=== PATIENT | female | born 1990 | race Caucasian/White ===

== ENCOUNTER 2022-07-12 13:17 | Emergency (ER) | payer SELFPAY ==
[2022-07-12 13:18] VITALS: BP 113/83; PULSE 108; RESP 18; TEMP 35.7; O2SAT 100; BMI 22.6
--- NOTE | 2022-07-12 14:05 | EKG12_ITS ---
Test Reason : Blood Pressure : / mmHG Vent. Rate : 090 BPM Atrial Rate : 090 BPM P-R Int : 150 ms QRS Dur : 076 ms QT Int : 366 ms P-R-T Axes : 068 045 001 degrees QTc Int : 447 ms Normal sinus rhythm Nonspecific T wave abnormality Abnormal ECG Confirmed by ROBERTA RANDALL, HALLE ([id number]), food editor HOLLIS ISRAEL ([id number]) on 07/14/2022 8:57:12 AM Referred By: Confirmed By:HALLE GRANADOS MD
--- NOTE | 2022-07-12 14:07 | EX.ED.DYSGE1 ---
HPI History of Present Illness Chief Complaint: Fatigue Detail of Chief Complaint: Weakness Informant: patient Narrative Narrative: Patient presents to the emergency department with complaint of generalized weakness that started 3 to 4 days ago. Patient states that she has exertional dyspnea and gets very weak with minimal activity where she has to sit down. She denies any recent illness. She denies any blood in her stool or black tarry stool. She denies urinary symptoms. She denies fever. She denies cough. She denies chest pain. Patient has not had symptoms like this before. She did have some abdominal discomfort yesterday when vomited x2 but that seems to have resolved. Patient's family was sick with a gastrointestinal bug a couple of weeks ago. Last menstrual period was 1 week ago and she has not missed any periods. Prior similar symptoms: No PFSH PFSH Medical History no medical history Home Medications NK 07/12/22 [History Last Taken Unknown] Allergy/AdvReac Type Severity Reaction Status Date / Time No Known Allergies Allergy Verified 07/12/22 13:19 Social History Smoking Status: Current every day smoker tobacco type: cigarettes ROS ROS ED Review of Systems ROS Unobtainable: other Constitutional Constitutional ED: Reports lethargy; Denies chills, fever(s), sweats or weight loss Eyes Eyes: Denies blurry vision, change in vision or diplopia ENT ENT ED: Denies rhinorrhea or sore throat Cardiovascular Cardiovascular: Denies chest pain, orthopnea or racing heartbeat Respiratory/Chest Respiratory/Chest: Reports dyspnea on exertion; Denies cough, dyspnea, orthopnea or sputum Gastrointestinal Gastrointestinal: Reports vomiting; Denies abdominal pain, diarrhea or nausea Genitourinary Genitourinary ED: Denies dysuria, hematuria or urinary frequency Musculoskeletal Musculoskeletal: Denies arthralgias, back pain, myalgias or neck pain Integumentary Denies abscess, Abrasions or rash Neurologic Neurologic: Reports weakness; Denies headache(s) Psychiatric Psychiatric: Denies anxiety, depression or suicidal thoughts Endocrine Endocrinology: Denies polydipsia, polyphagia or polyuria Hematologic/Lymphatic Hematologic/Lymphatic: Denies easy bleeding, easy bruising or lymphadenopathy Allergic/Immunologic Allergic/Immunologic ED: Denies mouth swelling, tongue swelling or urticaria EXAM Physical Exam Const Vital Signs: 07/12/22 13:18 Temperature 96.2 F L Temperature Source Temporal Pulse Rate 108 H Respiratory Rate 18 Blood Pressure 113/83 H Blood Pressure Mean 93 Pulse Ox 100 Oxygen Delivery Method Room Air Positive well nourished and well developed General Appearance ED: well developed and NAD HEENT Reports TM's clear and moist mucous membranes normocephalic and atraumatic; Negative for trauma or tenderness Tympanic Membrane ED: Yes TM's clear Eyes PERRL and EOMs intact bilaterally General Eye ED: Negative for pale conjunctiva or scleral icterus Neck no lymphadenopathy, supple and no JVD General: Negative for tenderness Chest Wall inspection of chest normal and palpation of chest normal Chest: Negative for tenderness Resp normal respiratory effort and clear to auscultation bilaterally Effort and Inspection: Negative for respiratory distress or pain with movement Auscultation: Negative for rhonchi, wheezes or diminished lung sounds Cardio regular rate, regular rhythm, S1 normal heart sound, S2 normal heart sound and no murmurs Peripheral Pulses: pulses 2+ throughout GI normal to inspection, nondistended, normoactive bowel sounds, soft to palpation, non-tender, non-distended and no masses Back/Spine no CVA tenderness and no thoracic nor lumbar tenderness Extremity normal to inspection General Extremety ED: Negative for edema General Extremity: Negative for edema Neuro oriented x3, CN's II-XII intact bilaterally, no sensory deficits noted and gait normal Sensorium / Orientation: awake, alert, oriented to person, oriented to place and oriented to time Motor Exam: strength 5/5 throughout and strength abnormal Psych mental status grossly normal Skin no rashes or lesions noted and no wounds MDM MDM MDM Narrative Medical decision making narrative: Patient presents with vague symptoms of generalized weakness. In the differential would be viral etiology versus anemia versus cardiac etiology versus metabolic etiology. Patient had an IV line established and was given normal saline. CBC with differential obtained showed a normal white count of 4.8 with a hemoglobin of 15 and a hematocrit of 45 with a platelet count of 186. Chemistries were normal. LFTs were normal. Troponin was less than 3. TSH normal at 1.45. hCG was negative. Urinalysis was normal. Chest x-ray showed no acute disease process. I did do a COVID and influenza screen and both were negative. EKG showed a sinus rhythm with a rate of [address] changes. At this time etiology of her symptoms unclear. Suspect possibility of a viral etiology as most likely. History & Record Review Discussion w/independent historian: Patient and Family Lab Data Labs: Laboratory Results - last 24 hr 07/12/22 07/12/22 07/12/22 14:10 14:10 14:10 WBC 4.8 RBC 5.04 Hgb 15.1 H Hct 44.9 MCV 89.1 MCH 30.0 MCHC 33.6 RDW Std Deviation 41.4 RDW Coeff of Izabella 12.7 Plt Count 186 MPV 9.5 Immature Gran % (Auto) 0.200 Neut % (Auto) 70.5 H Lymph % (Auto) 15.4 L Benson % (Auto) 13.1 H Eos % (Auto) 0.4 Baso % (Auto) 0.4 Absolute Neuts (auto) 3.4 Absolute Lymphs (auto) 0.74 L Nucleated RBC % 0 Sodium 136 Potassium 3.3 L Chloride 104 Carbon Dioxide 26.0 Anion Gap 6 BUN 9 Creatinine 0.68 Estim Creat Clear Calc 125.27 Est GFR (MDRD) Af Amer 130 Est GFR (MDRD) Non-Af 108 BUN/Creatinine Ratio 13.3 Glucose 109 H Calcium 8.4 L Total Bilirubin 0.60 AST 13 L ALT 15 Alkaline Phosphatase 58 Troponin I High Sens < 3 L Total Protein 6.4 Albumin 3.4 Globulin 3.0 Albumin/Globulin Ratio 1.1 TSH 1.45 Serum , Qual NEGATIVE Urine Color Urine Clarity Urine pH Ur Specific [place] Urine Protein Urine Glucose (UA) Urine Ketones Urine Occult Blood Urine Nitrite Urine Bilirubin Urine Urobilinogen Ur Leukocyte Esterase Urine RBC Urine WBC Ur Squamous Epith Cells Urine Bacteria Urine Mucus 07/12/22 14:10 WBC RBC Hgb Hct MCV MCH MCHC RDW Std Deviation RDW Coeff of Izabella Plt Count MPV Immature Gran % (Auto) Neut % (Auto) Lymph % (Auto) Benson % (Auto) Eos % (Auto) Baso % (Auto) Absolute Neuts (auto) Absolute Lymphs (auto) Nucleated RBC % Sodium Potassium Chloride Carbon Dioxide Anion Gap BUN Creatinine Estim Creat Clear Calc Est GFR (MDRD) Af Amer Est GFR (MDRD) Non-Af BUN/Creatinine Ratio Glucose Calcium Total Bilirubin AST ALT Alkaline Phosphatase Troponin I High Sens Total Protein Albumin Globulin Albumin/Globulin Ratio TSH Serum , Qual Urine Color Yellow Urine Clarity Sl. Cloudy Urine pH 6.0 Ur Specific [place] 1.020 Urine Protein 30 H Urine Glucose (UA) Normal Urine Ketones 5 H Urine Occult Blood 10 H Urine Nitrite Negative Urine Bilirubin 1 H Urine Urobilinogen 4 H Ur Leukocyte Esterase 25 H Urine RBC 0 SEEN Urine WBC 5-10 SEEN Ur Squamous Epith Cells 50-100 SEEN Urine Bacteria 0 SEEN Urine Mucus 2+ EKG Initial EKG: Attestation: I personally reviewed and interpreted this EKG as follows: Comments: Sinus rhythm with a rate of [address] changes. Prior EKG tracings: not available for review Discharge Plan Triage Chief Complaint: Fatigue ED Provider: Vanessa Conley Dx/Rx/DC Orders Clinical Impression: Weakness Instructions: ED Weakness (Uncertain Cause) Prescriptions: No Action NK Primary Care Provider: Care Physician,No Primary Referrals: Elisabeth Flynn MD [Med Staff - Radiologic Technician] - 3-5 Days Care Physician,No Primary [Primary Care Provider] - Disposition Disposition: Home, Self Care
--- NOTE | 2022-07-12 14:10 | NURSING ---
NO OLD EKGS
[2022-07-12] MEDS: 0.9% Normal Saline 1,000 ML 150 ML IV (14:21)
[2022-07-12 14:28] LABS: Bacteria 0 SEEN /hpf (None Seen); Red Blood Cells-Urine 0 SEEN /hpf (0-5)
--- NOTE | 2022-07-12 14:30 | RAD_ITS ---
EXAM: XR CHEST, 1 VIEW CLINICAL INDICATION: weakness TECHNIQUE: Frontal view of the chest. This report was created using [employer] report generation technology. COMPARISON: None. FINDINGS: LUNGS AND PLEURAL SPACES: The lungs are clear. No pneumothorax. No effusion. HEART: Unremarkable. Cardiac silhouette not enlarged. MEDIASTINUM: Central airways and mediastinal contour are unremarkable. BONES/JOINTS: Unremarkable. SOFT TISSUES: Unremarkable. RAD/Chest 1 View (Portable) IMPRESSION: Normal chest radiograph. Electronically Signed: Neto Beasley MD at 15:41 EST ,
[2022-07-12 14:33] LABS: Absolute Lymphocyte Count 0.74 X10^3/uL (0.83-4.51); Absolute Neutrophil Count 3.4 X10^3/uL (2.0-7.7); Basophil# 0.02 X10^3/uL; Basophil% 0.4 % (0-1); Eosinophil# 0.02 X10^3/uL; Eosinophils% 0.4 % (0-5); Hematocrit 44.9 % (37-47); Hemoglobin 15.1 g/dL (12.0-15.0); Lymphocyte # 0.74 X10^3/ul (0.83-4.51); Lymphocyte % 15.4 % (19-41); Mean Corp Hgb Conc 33.6 g/dL (32-36); Mean Corpuscular Volume 89.1 fL (81-99); Mean Platelet Vol. 9.5 fl (6.2-12.0); Monocyte# 0.63 X10^3/uL; Monocyte% 13.1 % (0-10); NRBC Flagged by Analyzer 0 % (0-5); Neutrophil % 70.5 % (47-70); Platelet Count 186 K/mm3 (150-450); RBC Distribution Width CV 12.7 % (11.6-14.6); RBC Distribution Width SD 41.4 fl (35.1-43.9); Red Blood Count 5.04 M/mm3 (4.2-5.4); White Blood Count 4.8 K/mm3 (4.4-11.0)
[2022-07-12 14:34] LABS: Color, Urine Yellow (Yellow); Glucose, Dipstick Normal (Normal); Ketone-Dipstick 5 mg/dl (Negative); Leukocyte Esterase-Dipstick 25 /ul (Negative); Nitrite-Dipstick Negative (Negative); Occult Blood-Urine 10 /ul (Negative); Protein-Dipstick 30 mg/dl (Negative); Urine Clarity Sl. Cloudy (Clear); Urine Urobilinogen 4 mg/dl (Normal)
[2022-07-12 14:41] LABS: Internal QC Validated? YES +Cl - CLEAR BKGD; Pregnancy, Serum, hCG Quali. NEGATIVE Negative
[2022-07-12 14:43] LABS: Urine Bilirubin Dipstick 1 mg/dL (Negative)
[2022-07-12 14:46] LABS: Mucous, Urine 2+ /hpf (<or=2+); Squamous Epithelial Cells - UA 50-100 SEEN /hpf (5-10); White Blood Cells 5-10 SEEN /hpf (0-5)
[2022-07-12 15:00] LABS: ALB/GLOB Ratio 1.1 RATIO (0.9-2.4); AST(SGOT) 13 U/L (15-37); Alanine Aminotransfer ALT/SGPT 15 U/L (13-56); Albumin, Serum 3.4 g/dL (3.2-5.0); Alkaline Phosphatase 58 U/L (45-117); Anion Gap 6 (5-15); BUN 9 mg/dL (7-18); BUN/Creat Ratio 13.3 RATIO (10-20); Calcium,Total 8.4 mg/dL (8.5-10.1); Chloride 104 mmol/L (98-107); Creatinine, Serum 0.68 mg/dL (0.55-1.02); EST Glomerular Filtration Rate 108 mL/min (>60); Est Glom Filt Rate - Afr Amer 130 mL/min (>60); Estimated Creatinine Clearance 125.27 ml/min; Glucose 109 mg/dL (74-106); Potassium 3.3 mmol/L (3.5-5.1); Protein, Total 6.4 g/dL (6.4-8.2); Sodium Level 136 mmol/L (136-145); Thyroid Stim Hormone (TSH) 1.45 uIU/mL (0.358-3.74); Troponin-I HS < 3 pg/mL (3.0-54.0)
[2022-07-12 15:23] VITALS: BP 107/74; PULSE 90; RESP 16; O2SAT 99
== END 2022-07-12 15:32 | disposition home or self-care (01) ==
PROVIDERS: Emergency Provider Emergency Medicine; Visit Provider Emergency Medicine
DX: R53.1 Weakness (principal); F17.210 Nicotine dependence, cigarettes, uncomplicated
CPT/HCPCS: 71045; 80053; 81001; 84443; 84484; 84703; 85025; 87428; 93005; 96360; 99282; J7030; A4216

== ENCOUNTER → 2022-11-07 | Outpatient (CLI) | payer OTHER, MEDICAID, SELFPAY ==
[2022-11-11 05:07] LABS: Chlamydia By Nucleic Acid AMP Negative (Negative); Gonococcus By Nucleic Acid AMP Negative (Negative)
[2022-11-12 00:06] LABS: HPV APTIMA, High Risk Positive (Negative); HPV Genotype 16, Aptima Negative (Negative); HPV Genotype 18,45 Aptima Negative (Negative)
== END | disposition home or self-care (01) ==
LOC: LABSPEC 16:48
PROVIDERS: Referring Provider Advanced Practice Midwife; Visit Provider Advanced Practice Midwife
DX: Z34.90 Encounter for supervision of normal pregnancy, unspecified, unspecified trimester (principal)
CPT/HCPCS: 87086; 87491; 87591; 87624; 88175; G0145

== ENCOUNTER → 2022-11-21 | Outpatient (CLI) | payer OTHER, MEDICAID, SELFPAY ==
[2022-11-21 13:25] LABS: NATERA MAILED SPECIMEN
== END | disposition home or self-care (01) ==
LOC: LAB 12:15
PROVIDERS: Referring Provider Advanced Practice Midwife; Visit Provider Advanced Practice Midwife
DX: Z34.81 Encounter for supervision of other normal pregnancy, first trimester (principal); Z31.430 Encounter of female for testing for genetic disease carrier status for procreative management
CPT/HCPCS: 36415

== ENCOUNTER → 2022-12-05 | Outpatient (CLI) | payer MEDICAID, SELFPAY ==
[2022-12-05 15:13] LABS: Absolute Lymphocyte Count 1.47 X10^3/uL (0.83-4.51); Absolute Neutrophil Count 7.6 X10^3/uL (2.0-7.7); Basophil# 0.02 X10^3/uL; Basophil% 0.2 % (0-1); Eosinophil# 0.09 X10^3/uL; Eosinophils% 0.9 % (0-5); Hematocrit 34.6 % (37-47); Hemoglobin 11.6 g/dL (12.0-15.0); Lymphocyte # 1.47 X10^3/ul (0.83-4.51); Lymphocyte % 14.8 % (19-41); Mean Corp Hgb Conc 33.5 g/dL (32-36); Mean Corpuscular Hgb 30.8 pg (27.0-32.0); Mean Corpuscular Volume 91.8 fL (81-99); Mean Platelet Vol. 9.9 fl (6.2-12.0); Monocyte# 0.69 X10^3/uL; NRBC Flagged by Analyzer 0 % (0-5); Neutrophil # 7.59 X10^3/uL (2.7-7.7); Neutrophil % 76.7 % (47-70); Platelet Count 237 K/mm3 (150-450); RBC Distribution Width CV 13.1 % (11.6-14.6); Red Blood Count 3.77 M/mm3 (4.2-5.4); White Blood Count 9.9 K/mm3 (4.4-11.0)
[2022-12-05 16:36] LABS: HIV - WCH Non-Reactive (Nonreactive); Hepatitis B Surface Antigen Non-Reactive (Nonreactive); Hepatitis C Antibody Non-Reactive (Nonreactive); Rubella IgG Reactive (Nonreactive); Syphilis Antibodies Non-reactive
== END | disposition home or self-care (01) ==
PROVIDERS: Referring Provider Advanced Practice Midwife; Visit Provider Advanced Practice Midwife
DX: Z34.90 Encounter for supervision of normal pregnancy, unspecified, unspecified trimester (principal)
CPT/HCPCS: 36415; 85025; 86703; 86762; 86780; 86803; 86850; 86900; 86901; 87340

== ENCOUNTER → 2023-02-14 | Outpatient (CLI) | payer MEDICAID, SELFPAY ==
--- NOTE | 2023-02-14 14:36 | US_ITS ---
EXAM: US SECOND OR THIRD TRIMESTER ADDITIONAL GESTATION, TRANSABDOMINAL CLINICAL INDICATION: anatomy US TECHNIQUE: Transabdominal obstetrical ultrasound with image documentation of the maternal pelvis and an additional second or third trimester . COMPARISON: No relevant prior studies available. FINDINGS: ADDITIONAL GESTATION: FETUS: There is an intrauterine gestation. HEART RATE: heart rate is 150. PRESENTATION: The fetus is in cephalic position. PLACENTA: Placenta is anterior. No placenta previa. No abruption. AMNIOTIC FLUID: Unremarkable. ANATOMY: Lateral ventricles, cisterna magna, cerebellum face, four-chamber heart, stomach, three-vessel cord insertion, kidneys, bladder, spine and extremities were all visualized. BIOMETRICS of the ADDITIONAL GESTATION: GESTATIONAL AGE: Gestational age 20 weeks 2 days. SHERIF: SHERIF 06/18/2023. EFW: Estimated weight 517 g, 52nd percentile. BPD: Biparietal diameter 5.5 cm age 22 weeks 6 days, 69th percentile. HC: Head circumference 20.2 cm age 22 weeks 2 days, 38th percentile. AC: Abdominal circumference 17.5 cm age 22 weeks 3 days, 47th percentile. FL: Femur length 3.8 cm age 22 2 days, 39th percentile. CERVIX: The cervix measures 3.7 cm. FREE FLUID: Largest fluid pocket is 3.2 x 4.1 cm. IMPRESSION: Intrauterine gestation with an average ultrasound age of 22 weeks 2 days and ultrasound estimated due date of 06/18/2023. The heart rate is 150 bpm. Electronically Signed: Presley Irene MD at 23:59 EDT , [employer]Script[employer] Unformatted Report Format: Options: n 2f 2i act cap dr joann lamb wcta sl lj Gender: Female Age: 32 years Exam: US OB Transvaginal Comparison: History: anatomy US Contrast: EXAM: US SECOND OR THIRD TRIMESTER ADDITIONAL GESTATION, TRANSABDOMINAL CLINICAL INDICATION: anatomy US TECHNIQUE: Transabdominal obstetrical ultrasound with image documentation of the maternal pelvis and an additional second or third trimester . COMPARISON: No relevant prior studies available. FINDINGS: ADDITIONAL GESTATION: FETUS: There is an intrauterine gestation. HEART RATE: heart rate is 150. PRESENTATION: The fetus is in cephalic position. PLACENTA: Placenta is anterior. No placenta previa. No abruption. AMNIOTIC FLUID: Unremarkable. ANATOMY: Lateral ventricles, cisterna magna, cerebellum face, four-chamber heart, stomach, three-vessel cord insertion, kidneys, bladder, spine and extremities were all visualized. BIOMETRICS of the ADDITIONAL GESTATION: GESTATIONAL AGE: Gestational age 20 weeks 2 days. SHERIF: SHERIF 06/18/2023. EFW: Estimated weight 517 g, 52nd percentile. BPD: Biparietal diameter 5.5 cm age 22 weeks 6 days, 69th percentile. HC: Head circumference 20.2 cm age 22 weeks 2 days, 38th percentile. AC: Abdominal circumference 17.5 cm age 22 weeks 3 days, 47th percentile. FL: Femur length 3.8 cm age 22 2 days, 39th percentile. CERVIX: The cervix measures 3.7 cm. FREE FLUID: Largest fluid pocket is 3.2 x 4.1 cm. US/OB Anatomy w/ Transvaginal
== END | disposition home or self-care (01) ==
LOC: US 14:36
PROVIDERS: Referring Provider Advanced Practice Midwife; Visit Provider Advanced Practice Midwife
DX: O09.90 Supervision of high risk pregnancy, unspecified, unspecified trimester (principal); Z3A.00 Weeks of gestation of pregnancy not specified
CPT/HCPCS: 76805; 76817

== ENCOUNTER → 2023-03-28 | Outpatient (CLI) | payer MEDICAID, SELFPAY ==
[2023-03-28 10:01] LABS: Absolute Lymphocyte Count 1.59 X10^3/uL (0.83-4.51); Absolute Neutrophil Count 10.3 X10^3/uL (2.0-7.7); Basophil# 0.04 X10^3/uL; Basophil% 0.3 % (0-1); Eosinophils% 0.8 % (0-5); Hematocrit 31.7 % (37-47); Hemoglobin 10.6 g/dL (12.0-15.0); Lymphocyte # 1.59 X10^3/ul (0.83-4.51); Lymphocyte % 12.5 % (19-41); Mean Corp Hgb Conc 33.4 g/dL (32-36); Mean Corpuscular Hgb 30.6 pg (27.0-32.0); Mean Corpuscular Volume 91.6 fL (81-99); Mean Platelet Vol. 9.1 fl (6.2-12.0); Monocyte# 0.54 X10^3/uL; Monocyte% 4.2 % (0-10); NRBC Flagged by Analyzer 0 % (0-5); Neutrophil # 10.34 X10^3/uL (2.7-7.7); Neutrophil % 81.2 % (47-70); Platelet Count 242 K/mm3 (150-450); RBC Distribution Width CV 13.3 % (11.6-14.6); RBC Distribution Width SD 44.3 fl (35.1-43.9); Red Blood Count 3.46 M/mm3 (4.2-5.4); White Blood Count 12.7 K/mm3 (4.4-11.0)
[2023-03-28 10:40] LABS: Glucose Challenge Gest 1H 50g 172 mg/dL (70-140)
[2023-03-28 10:55] LABS: HIV - WCH Non-Reactive (Nonreactive); Syphilis Antibodies Non-reactive
== END | disposition home or self-care (01) ==
LOC: LAB 09:25
PROVIDERS: Visit Provider Nurse Practitioner Women's Health
DX: Z34.90 Encounter for supervision of normal pregnancy, unspecified, unspecified trimester (principal)
CPT/HCPCS: 36415; 82950; 85025; 86703; 86780; 86850; 86900; 86901

== ENCOUNTER → 2023-04-05 | Outpatient (CLI) | payer MEDICAID, SELFPAY ==
[2023-04-05 10:57] LABS: Glucose GTT-Gestation. Fasting 96 mg/dL (<105)
[2023-04-05 11:40] LABS: Glucose GTT-Gestational 1 Hr 136 mg/dL (<190)
[2023-04-05 13:23] LABS: Glucose GTT-Gestational 2 Hr 115 mg/dL (<165)
[2023-04-05 13:32] LABS: Glucose GTT-Gestational 3 Hr 97 L (<145)
== END | disposition home or self-care (01) ==
LOC: LAB 09:52
PROVIDERS: Referring Provider Nurse Practitioner Women's Health; Visit Provider Nurse Practitioner Women's Health
DX: O99.810 Abnormal glucose complicating pregnancy (principal); Z3A.00 Weeks of gestation of pregnancy not specified
CPT/HCPCS: 36415; 82951; 82952

== ENCOUNTER → 2023-06-01 | Outpatient (CLI) | payer MEDICAID, SELFPAY ==
--- OUTSIDE RECORDS SUMMARY | 2023-06-01 14:43 | XMS RPT_ITS | CCD ---
Author Name Unknown Address [address] [place] [address] Organization [facility] Results Test Name Value Interpretation Reference Range Facil ity Summary Purpose Family History No Family History Records Found Advance Directives No Advanced Directives Records Found Additional Source Comments INFORMATION SOURCE (unrecogn ized section and content) FOR RECORDS PERTAINING TO PATIENTS WHO ARE OR HAVE BEEN ENROLLED IN A CHEMICAL DEPENDENCY/SUBSTANCEABUSE PROGRAM, SOME INFORMATION MAY BE OMITTED. This clinical summary was aggregated from multiple sources. Caution should be exercised in using it in the provision of clinical care. This summary normalizes information from multiple sources, and as a consequence, information in this document may materially change the coding, format and clinical context of patient data. In addition, data may be omitted in some cases. CLINICAL DECISIONS SHOULD BE BASED ON THE PRIMARY CLINICAL RECORDS. [employer]. provides no warranty or guarantee of the accuracy or completeness of information in this document.
== END | disposition home or self-care (01) ==
LOC: LABSPEC 14:12
PROVIDERS: Referring Provider Obstetrics & Gynecology; Visit Provider Obstetrics & Gynecology
DX: Z34.90 Encounter for supervision of normal pregnancy, unspecified, unspecified trimester (principal)
CPT/HCPCS: 87081

== ENCOUNTER 2023-06-17 13:25 | Outpatient (CLI) | payer MEDICAID, SELFPAY ==
[2023-06-17 13:40] VITALS: BP 120/70; PULSE 96
--- OUTSIDE RECORDS SUMMARY | 2023-06-17 13:40 | XMS RPT_ITS | CCD ---
Author Name Unknown Address [address] [place] [address] Organization [facility] Results Test Name Value Interpretation [...] BE BASED ON THE PRIMARY CLINICAL RECORDS. [employer]. provides no warranty or guarantee of the accuracy or completeness of information in this document.
[2023-06-17 13:45] VITALS: TEMP 37.2; O2SAT 96
[2023-06-17 14:10] VITALS: BMI 29.2
--- NOTE | 2023-06-17 15:47 | OB.TRI.HP_ITS ---
HPI - General General Date of Admission: 06/17/23 HPI Narrative MELANIE BUSTOS, is a 32 y/o @ 39 weeks 6 days who presents to L&D with worsening contraction intensity and frequency. she denies loss of fluid, vaginal bleeding, or dec fm. Maternal Data Information SHERIF Calculator Estimated Delivery Date Method Current WG Current Estimate 06/18/23 Ultrasound #1 40w 0d Other Estimates 06/10/23 LMP (Uncertain) 41w 1d PFSH PFSH Medical History Abnormal glucose affecting Home Medications valacyclovir 500 mg tablet (Valtrex) 500 mg PO BID #7 tabs 06/09/23 [Rx Last Taken Unknown] [id number] 1 mg tablet tab PO 06/17/23 [History Last Taken 06/16/23] Allergy/AdvReac Type Severity Reaction Status Date / Time No Known Allergies Allergy Verified 06/18/23 04:22 Family History Aunt Breast cancer Father Cancer Mother Congestive heart failure Social History adopted: No household members: significant other and family housing: house current occupational status: employed pets and animals: Yes pets and animals: cat(s), dog(s) and bird(s) history of recent travel: No sexually active: Yes Smoking Status: Current some day smoker tobacco type: cigarettes second hand exposure: Yes quit status: considering quitting alcohol intake: never substance use type: does not use caffeine: Yes Type: coffee seatbelt use: always do you feel safe at home: Yes additional social history: [place]- [place] History 2 Elective abortions 1 Hx Para 0 Spontaneous abortions Hx # Term Pregnancies Ectopic pregnancies Hx # Pregnancies Multiple births # of living children Visit Details Expected Delivery Route/Plan Labor Preferences- CB/BF classes: encouraged labor support person: Vitaly labor intervention preferences: [] pain management options preferred: limited but open to epidural cut cord/dad catch: yes : yes PP control planned: discussed discussed possible routes of delivery and associated risks: [] special requests: [] Plans Covid status: unvax Flu vaccine: declines Tdap vaccine: 03/28/23 Rhogam: 03/28/23 LARC form signed: yes movement and labor precautions reviewed. Problem list reviewed and updated with the most current plan of care details and appropriate orders placed. Relevant counseling for the gestational age provided. Continue routine care and follow up unless otherwise noted in visit notes/problem list details OB Flowsheet Initial Weight: 170 lb Date -?-?-?-?-?-?-?-?-?-?-?-?- EGA Weight BP Urine Prot -?-?-?-?-?-?-?-?-?-?-?-?- Glucose FHR FuHt Pres Dilation -?-?-?-?-?-?-?-?-?-?-?-?- Effaced St Visit Note 11/07/22 -?-?-?-?-?-?-?-?-?-?-?-?- 8w 1d 170 lb 2 oz (+2 oz) Trace -?-?-?-?-?-?-?-?-?-?-?-?- Negative 175 -?-?-?-?-?-?-?-?-?-?-?-?- KW- CRL (1.72) n ot cons with dates. Adjusted SHERIF. SM reviewed CRL, agrees with change. 12/05/22 -?-?-?-?-?-?-?-?-?-?-?-?- 12w 1d 177 lb 2 oz (+7 lb 2 oz) Negative -?-?-?-?-?-?-?-?-?-?-?-?- Negative 160 -?-?-?-?-?-?-?-?-?-?-?-?- LC-no vb/crampin g. no concerns. working on decreasing tobacco use. discussed and desires afp. order at next visit. will obtain nob labs today. 01/02/23 -?-?-?-?-?-?-?-?-?-?-?-?- 16w 1d 178 lb 6 oz (+8 lb 6 oz) 112/68 Negative -?-?-?-?-?-?-?-?-?-?-?-?- Negative 157 -?-?-?-?-?-?-?-?-?-?-?-?- MH-No VB, nausea resolved. Feels well. AFP today 02/03/23 -?-?-?-?-?-?-?-?-?-?-?-?- 20w 5d Negative -?-?-?-?-?-?-?-?-?-?-?-?- Negative 160 20 -?-?-?-?-?-?-?-?-?-?-?-?- KW-no vb/lof/ctx . good fm. Had appt with [facility] for anatomy US but lost insurance. US ordered today at hospital for anatomy US. Decided not to get the AFP screening done. Discussed upcoming 28 week labs and importance of getting those done along with Rhogam. Verbalized understanding. 03/02/23 -?-?-?-?-?-?-?-?-?-?-?-?- 24w 4d 195 lb 2 oz (+25 lb 2 oz) 126/74 Negative -?-?-?-?-?-?-?-?-?-?-?-?- Negative 149 24 -?-?-?-?-?-?-?-?-?-?-?-?- MH-No VB, LOF. G ood FM. Denies concerns 03/28/23 -?-?-?-?-?-?-?-?-?-?-?-?- 28w 2d 197 lb 6 oz (+27 lb 6 oz) 114/68 Negative -?-?-?-?-?-?-?-?-?-?-?-?- Negative 152 28 -?-?-?--?-?-?-?-?-?-?-?-?- MH-NO VB, LOF. G ood FM. tdap, larc, rhogam complete. 28 wk labs pending 04/14/23 -?-?-?-?-?-?-?-?-?-?-?-?- 30w 5d 197 lb 8 oz (+27 lb 8 oz) 113/67 Negative -?-?-?-?-?-?-?-?-?-?-?-?- Negative 145 30 -?-?-?-?-?-?-?-?-?-?-?-?- KW- no vb/lof/ct x. good fm. nl 3 hour gct. no concerns 04/28/23 -?-?-?-?-?-?-?-?-?-?-?-?- 32w 5d 200 lb 6 oz (+30 lb 6 oz) 115/69 Negative -?-?-?-?-?-?-?-?-?-?-?-?- Negative 135 32 -?-?-?-?-?-?-?-?-?-?-?-?- KW- no vb.lof.cr amping. good fm. no concerns today-pepcid OTC for heartburn. 06/01/23 -?-?-?-?-?-?-?-?-?-?-?-?- 37w 4d 200 lb (+30 lb) 110/71 Negative -?-?-?-?-?-?-?-?-?-?-?-?- Negative 145 37 Cephalic -?-?-?-?-?-?-?-?-?-?-?-?- SM- no vb lof go od fm no regular ctx gbs colleted enc CB classes 06/09/23 -?-?-?-?-?-?-?-?-?-?-?-?- 38w 5d 198 lb (+28 lb) 111/74 Negative -?-?-?-?--?-?-?-?-?-?-?-?- Negative 150 37 Cephalic 1 -?-?-?-?-?-?-?-?-?-?-?-?- 50 -3 JV- no lof , vaginal bleeding, or dec fm. 06/13/23 -?-?-?-?-?-?-?-?-?-?-?-?- 39w 2d 201 lb 8 oz (+31 lb 8 oz) 119/74 Negative -?-?-?-?-?-?-?-?-?-?-?-?- Negative 148 39 Cephalic 1 -?-?-?-?-?-?-?-?-?-?-?-?- 50 -2 JV- no lof , vaginal bleeding, or dec fm. cold sore is gone. continue therapy until baby is born. ROS Constitutional Constitutional: Reports systems reviewed and no addt'l complaints, except as documented Gastrointestinal Gastrointestinal: Denies bloating, constipation, cramping, diarrhea, nausea or vomiting Genitourinary Genitourinary: Reports other Details: Denies vaginal odor, vaginal bleeding, or vaginal discharge ; Denies difficulty urinating or flank pain Physical Exam HEENT normocephalic Resp normal respiratory effort and normal air movement no CVA tenderness Extremity normal to inspection General Extremity: edema bilateral (trace ) NST FHR Rate Baby A Baseline: 120 Variability:: Moderate Accelerations:: 15 x 15 Decelerations:: None NST Reactive:: Yes FHR Category:: Category I Assessment & Plan (1) False labor at or after 37 completed weeks of gestation: PLAN: Cervix unchanged after >2 hrs. labor precautions discussed return if membrane rupture, vaginal bleeding, or worsening contraction and increased frequency dc to home now Charges/Coding Multi Select Codes Visit Charges Office Visit/Consults: 50545 OV L3 Est 20min Urinary/Genital Urinary/Genital CPT Codes: 17130-69 non-stress test Interp
--- NOTE | 2023-06-17 15:47 | OB.TRI.NOTE ---
HPI - General General Date of Admission: 06/17/23 HPI Narrative MELANIE BUSTOS, is a 32 y/o @ 39 weeks 6 days who presents to L&D with worsening contraction intensity and frequency. she denies loss of fluid, vaginal bleeding, or dec fm. Maternal Data Information SHERIF Calculator Estimated Delivery Date Method Current WG Current Estimate 06/18/23 Ultrasound #1 40w 0d Other Estimates 06/10/23 LMP (Uncertain) 41w 1d PFSH PFSH Medical History Abnormal glucose affecting Home Medications valacyclovir 500 mg tablet (Valtrex) 500 mg PO BID #7 tabs 06/09/23 [Rx Last Taken Unknown] [id number] 1 mg tablet tab PO 06/17/23 [History Last Taken 06/16/23] Allergy/AdvReac Type Severity Reaction Status Date / Time No Known Allergies Allergy Verified 06/18/23 04:22 Family History Aunt Breast cancer Father Cancer Mother Congestive heart failure Social History adopted: No household members: significant other and family housing: house current occupational status: employed pets and animals: Yes pets and animals: cat(s), dog(s) and bird(s) history of recent travel: No sexually active: Yes Smoking Status: Current some day smoker tobacco type: cigarettes second hand exposure: Yes quit status: considering quitting alcohol intake: never substance use type: does not use caffeine: Yes Type: coffee seatbelt use: always do you feel safe at home: Yes additional social history: [place]- Vitaly History 2 Elective abortions 1 Hx Para 0 Spontaneous abortions Hx # Term Pregnancies Ectopic pregnancies Hx # Pregnancies Multiple births # of living children Visit Details Expected Delivery Route/Plan Labor Preferences- CB/BF classes: encouraged labor support person: Vitaly labor intervention preferences: [] pain management options preferred: limited but open to epidural cut cord/dad catch: yes : yes PP control planned: discussed discussed possible routes of delivery and associated risks: [] special requests: [] Plans Covid status: unvax Flu vaccine: declines Tdap vaccine: 03/28/23 Rhogam: 03/28/23 LARC form signed: yes movement and labor precautions reviewed. Problem list reviewed and updated with the most current plan of care details and appropriate orders placed. Relevant counseling for the gestational age provided. Continue routine care and follow up unless otherwise noted in visit notes/problem list details OB Flowsheet Initial Weight: 170 lb Date <del>?</del> EGA Weight BP Urine Prot <del>?</del> Glucose FHR FuHt Pres Dilation <del>?</del> Effaced St Visit Note 11/07/22 <del>?</del> 8w 1d 170 lb 2 oz (+2 oz) Trace <del>?</del> Negative 175 <del>?</del> KW- CRL (1.72) not cons with dates. Adjusted SHERIF. SM reviewed CRL, agrees with change. 12/05/22 <del>?</del> 12w 1d 177 lb 2 oz (+7 lb 2 oz) Negative <del>?</del> Negative 160 <del>?</del> LC-no vb/cramping. no concerns. working on decreasing tobacco use. discussed and desires afp. order at next visit. will obtain nob labs today. 01/02/23 <del>?</del> 16w 1d 178 lb 6 oz (+8 lb 6 oz) 112/68 Negative <del>?</del> Negative 157 <del>?</del> MH-No VB, nausea resolved. Feels well. AFP today 02/03/23 <del>?</del> 20w 5d Negative <del>?</del> Negative 160 20 <del>?</del> KW-no vb/lof/ctx. good fm. Had appt with [facility] for anatomy US but lost insurance. US ordered today at hospital for anatomy US. Decided not to get the AFP screening done. Discussed upcoming 28 week labs and importance of getting those done along with Rhogam. Verbalized understanding. 03/02/23 <del>?</del> 24w 4d 195 lb 2 oz (+25 lb 2 oz) 126/74 Negative <del>?</del> Negative 149 24 <del>?</del> MH-No VB, LOF. Good FM. Denies concerns 03/28/23 <del>?</del> 28w 2d 197 lb 6 oz (+27 lb 6 oz) 114/68 Negative <del>?</del> Negative 152 28 <del>?</del> MH-NO VB, LOF. Good FM. tdap, larc, rhogam complete. 28 wk labs pending 04/14/23 <del>?</del> 30w 5d 197 lb 8 oz (+27 lb 8 oz) 113/67 Negative <del>?</del> Negative 145 30 <del>?</del> KW- no vb/lof/ctx. good fm. nl 3 hour gct. no concerns 04/28/23 <del>?</del> 32w 5d 200 lb 6 oz (+30 lb 6 oz) 115/69 Negative <del>?</del> Negative 135 32 <del>?</del> KW- no vb.lof.cramping. good fm. no concerns today-pepcid OTC for heartburn. 06/01/23 <del>?</del> 37w 4d 200 lb (+30 lb) 110/71 Negative <del>?</del> Negative 145 37 Cephalic <del>?</del> SM- no vb lof good fm no regular ctx gbs colleted enc CB classes 06/09/23 <del>?</del> 38w 5d 198 lb (+28 lb) 111/74 Negative <del>?</del> Negative 150 37 Cephalic 1 <del>?</del> 50 -3 JV- no lof, vaginal bleeding, or dec fm. 06/13/23 <del>?</del> 39w 2d 201 lb 8 oz (+31 lb 8 oz) 119/74 Negative <del>?</del> Negative 148 39 Cephalic 1 <del>?</del> 50 -2 JV- no lof, vaginal bleeding, or dec fm. cold sore is gone. continue therapy until baby is born. ROS Constitutional Constitutional: Reports systems reviewed and no addt'l complaints, except as documented Gastrointestinal Gastrointestinal: Denies bloating, constipation, cramping, diarrhea, nausea or vomiting Genitourinary Genitourinary: Reports other Details: Denies vaginal odor, vaginal bleeding, or vaginal discharge ; Denies difficulty urinating or flank pain Physical Exam HEENT normocephalic Resp normal respiratory effort and normal air movement no CVA tenderness Extremity normal to inspection General Extremity: edema bilateral (trace ) NST FHR Rate Baby A Baseline: 120 Variability:: Moderate Accelerations:: 15 x 15 Decelerations:: None NST Reactive:: Yes FHR Category:: Category I Assessment & Plan (1) False labor at or after 37 completed weeks of gestation: PLAN: Cervix unchanged after >2 hrs. labor precautions discussed return if membrane rupture, vaginal bleeding, or worsening contraction and increased frequency dc to home now Charges/Coding Multi Select Codes Visit Charges Office Visit/Consults: 77528 OV L3 Est 20min Urinary/Genital Urinary/Genital CPT Codes: 64337-50 non-stress test Interp
== END 2023-06-17 15:40 | disposition home or self-care (01) ==
LOC: WPOUT 13:29 → WP 13:29
PROVIDERS: Referring Provider Obstetrics & Gynecology; Visit Provider Obstetrics & Gynecology
DX: O47.1 False labor at or after 37 completed weeks of gestation (principal); O99.333 Smoking (tobacco) complicating pregnancy, third trimester; F17.210 Nicotine dependence, cigarettes, uncomplicated; Z3A.39 39 weeks gestation of pregnancy
CPT/HCPCS: 59025; 59050; G0378 ×2; 99221

== ENCOUNTER 2023-06-18 03:15 | Inpatient (IN) | payer MEDICAID, SELFPAY ==
[2023-06-18] VITALS (68 sets, daily range): BP systolic 95–119; BP diastolic 51–81; PULSE 42–101; RESP 16; TEMP 36.3–37.9; O2SAT 82–100; BMI 28.8
--- OUTSIDE RECORDS SUMMARY | 2023-06-18 02:42 | XMS RPT_ITS | CCD ---
Author Name Unknown Address [address] [place] [address] Organization [facility] Results Test Name Value Interpretation [...] BE BASED ON THE PRIMARY CLINICAL RECORDS. [employer] provides no warranty or guarantee of the accuracy or completeness of information in this document.
--- OUTSIDE RECORDS SUMMARY | 2023-06-18 03:21 | XMS RPT_ITS | CCD ---
Author Name Unknown Address [address] [place] [address] Organization [facility] Results Test Name Value Interpretation [...] BE BASED ON THE PRIMARY CLINICAL RECORDS. [employer] provides no warranty or guarantee of the accuracy or completeness of information in this document.
[2023-06-18] MEDS: Lactated Ringers 1,000 ML 200 ML IV ×3 (03:35→10:39)
[2023-06-18] MEDS: LACTATED RINGERS 500 ML 999 ML IV (03:35)
[2023-06-18 03:47] LABS: Absolute Lymphocyte Count 1.29 X10^3/uL (0.83-4.51); Absolute Neutrophil Count 14.9 X10^3/uL (2.0-7.7); Basophil# 0.05 X10^3/uL; Basophil% 0.3 % (0-1); Eosinophil# 0.03 X10^3/uL; Eosinophils% 0.2 % (0-5); Hematocrit 34.2 % (37-47); Hemoglobin 11.5 g/dL (12.0-15.0); Lymphocyte # 1.29 X10^3/ul (0.83-4.51); Lymphocyte % 7.4 % (19-41); Mean Corp Hgb Conc 33.6 g/dL (32-36); Mean Corpuscular Hgb 29.9 pg (27.0-32.0); Mean Corpuscular Volume 88.8 fL (81-99); Mean Platelet Vol. 9.4 fl (6.2-12.0); Monocyte# 1.06 X10^3/uL; Monocyte% 6.1 % (0-10); NRBC Flagged by Analyzer 0 % (0-5); Neutrophil # 14.91 X10^3/uL (2.7-7.7); Neutrophil % 85.4 % (47-70); Platelet Count 258 K/mm3 (150-450); RBC Distribution Width CV 13.9 % (11.6-14.6); RBC Distribution Width SD 44.9 fl (35.1-43.9); Red Blood Count 3.85 M/mm3 (4.2-5.4); White Blood Count 17.5 K/mm3 (4.4-11.0)
[2023-06-18] MEDS: fentaNYL-bupivacaine (epidural) 100 ML BAG EPIDURAL ×2 (04:49→09:20)
[2023-06-18 05:16] LABS: Syphilis Antibodies Non-reactive
[2023-06-18] MEDS: Ondansetron 4 MG/2 ML Vial IV (07:46)
[2023-06-18] MEDS: Oxytocin 15 Units/NS 250ml 15 UNITS/250 ML IV.SOLN 2 UNITS IV (09:43)
--- NOTE | 2023-06-18 09:50 | HP.PCM.OB_ITS ---
HPI - General General Date of Admission: 06/18/23 HPI Narrative MELANIE BUSTOS, is a 32 y/o @ 40 weeks 0 days who presents to L&D at around 3 am with worsening contraction pain and increased frequency. She was here the day prior and cervix was 1-2 cm dilated. Upon return She was found to be 4 cm dilated and requesting an epidural. The decision was made to proceed with admission. Maternal Data Information SHERIF Calculator Estimated Delivery Date Method Current WG Current Estimate 06/18/23 Ultrasound #1 40w 0d Other Estimates 06/10/23 LMP (Uncertain) 41w 1d PFSH PFS Medical History Abnormal glucose affecting Home Medications valacyclovir 500 mg tablet (Valtrex) 500 mg PO BID #7 tabs 06/09/23 [Rx Last Taken Unknown] [id number] 1 mg tablet tab PO 06/17/23 [History Last Taken 06/16/23] Allergy/AdvReac Type Severity Reaction Status Date / Time No Known Allergies Allergy Verified 06/18/23 04:22 Family History Aunt Breast cancer Father Cancer Mother Congestive heart failure Social History adopted: No household members: significant other and family housing: house current occupational status: employed pets and animals: Yes pets and animals: cat(s), dog(s) and bird(s) history of recent travel: No sexually active: Yes Smoking Status: Current some day smoker tobacco type: cigarettes second hand exposure: Yes quit status: considering quitting alcohol intake: never substance use type: does not use caffeine: Yes Type: coffee seatbelt use: always do you feel safe at home: Yes additional social history: BF- Vitaly History 2 Elective abortions 1 Hx Para 0 Spontaneous abortions Hx # Term Pregnancies Ectopic pregnancies Hx # Pregnancies Multiple births # of living children Visit Details Expected Delivery Route/Plan Labor Preferences- CB/BF classes: encouraged labor support person: Vitaly labor intervention preferences: [] pain management options preferred: limited but open to epidural cut cord/dad catch: yes : yes PP control planned: discussed discussed possible routes of delivery and associated risks: [] special requests: [] Plans Covid status: unvax Flu vaccine: declines Tdap vaccine: 03/28/23 Rhogam: 03/28/23 LARC form signed: yes movement and labor precautions reviewed. Problem list reviewed and updated with the most current plan of care details and appropriate orders placed. Relevant counseling for the gestational age provided. Continue routine care and follow up unless otherwise noted in visit notes/problem list details OB Flowsheet Initial Weight: 170 lb Date -?-?-?-?-?-?-?-?-?-?-?-?- EGA Weight BP Urine Prot -?-?-?-?-?-?-?-?-?-?-?-?- Glucose FHR FuHt Pres Dilation -?-?-?-?-?-?-?-?-?-?-?-?- Effaced St Visit Note 11/07/22 -?-?-?-?-?-?-?-?-?-?-?-?- 8w 1d 170 lb 2 oz (+2 oz) Trace -?-?-?-?-?-?-?-?-?-?-?-?- Negative 175 -?-?-?-?-?-?-?-?-?-?-?-?- KW- CRL (1.72) n ot cons with dates. Adjusted SHERIF. reviewed CRL, agrees with change. 12/05/22 -?-?-?-?-?-?-?-?-?-?-?-?- 12w 1d 177 lb 2 oz (+7 lb 2 oz) Negative -?-?-?-?-?-?-?-?-?-?-?-?- Negative 160 -?-?-?-?-?-?-?-?-?-?-?-?- LC-no vb/rosina daugherty. no concerns. working on decreasing tobacco use. discussed and desires afp. order at next visit. will obtain nob labs today. 01/02/23 -?-?-?-?-?-?-?-?-?-?-?-?- 16w 1d 178 lb 6 oz (+8 lb 6 oz) 112/68 Negative -?-?-?-?-?-?-?-?-?-?-?-?- Negative 157 -?-?-?-?-?-?-?-?-?-?-?-?- MH-No VB, nausea resolved. Feels well. AFP today 02/03/23 -?-?-?-?-?-?-?-?-?-?-?-?- 20w 5d Negative -?-?-?-?-?-?-?-?-?-?-?-?- Negative 160 20 -?-?-?-?-?-?-?-?-?-?-?-?- KW-no vb/lof/ctx . good fm. Had appt with [facility] for anatomy US but lost insurance. US ordered today at hospital for anatomy US. Decided not to get the AFP screening done. Discussed upcoming 28 week labs and importance of getting those done along with Rhogam. Verbalized understanding. 03/02/23 -?-?-?-?-?-?-?-?-?-?-?-?- 24w 4d 195 lb 2 oz (+25 lb 2 oz) 126/74 Negative -?-?-?-?-?-?-?-?-?-?-?-?- Negative 149 24 -?-?-?-?-?-?-?-?-?-?-?-?- -No VB, LOF. G ood FM. Denies concerns 03/28/23 -?-?-?-?-?-?-?-?-?-?-?-?- 28w 2d 197 lb 6 oz (+27 lb 6 oz) 114/68 Negative -?-?-?-?-?-?-?-?-?-?-?-?- Negative 152 28 -?-?-?-?-?-?-?-?-?-?-?-?- MH-NO VB, LOF. G ood FM. tdap, larc, rhogam complete. 28 wk labs pending 04/14/23 -?-?-?-?-?-?-?-?-?-?-?-?- 30w 5d 197 lb 8 oz (+27 lb 8 oz) 113/67 Negative -?-?-?--?-?-?-?-?-?-?-?-?- Negative 145 30 -?-?-?-?-?-?-?-?-?-?-?-?- KW- no vb/lof/ct x. good fm. nl 3 hour gct. no concerns 04/28/23 -?-?-?-?-?-?-?-?-?-?-?-?- 32w 5d 200 lb 6 oz (+30 lb 6 oz) 115/69 Negative -?-?-?-?-?-?-?-?-?-?-?-?- Negative 135 32 -?-?-?-?-?-?-?-?-?-?-?-?- KW- no vb.lof.cr amping. good fm. no concerns today-pepcid OTC for heartburn. 06/01/23 -?-?-?-?-?-?-?-?-?-?-?-?- 37w 4d 200 lb (+30 lb) 110/71 Negative -?-?-?-?-?-?-?-?-?-?-?-?- Negative 145 37 Cephalic -?-?-?-?-?-?-?-?-?-?-?-?- SM- no vb lof go od fm no regular ctx gbs colleted enc CB classes 06/09/23 -?-?-?-?-?-?-?-?-?-?-?-?- 38w 5d 198 lb (+28 lb) 111/74 Negative -?-?-?-?-?-?-?-?-?-?-?-?- Negative 150 37 Cephalic 1 -?-?-?-?-?-?-?-?-?-?-?-?- 50 -3 JV- no lof , vaginal bleeding, or dec fm. 06/13/23 -?-?-?-?-?-?-?-?-?-?-?-?- 39w 2d 201 lb 8 oz (+31 lb 8 oz) 119/74 Negative -?-?-?-?-?-?-?-?-?-?-?-?- Negative 148 39 Cephalic 1 -?-?-?-?-?-?-?-?-?-?-?-?- 50 -2 JV- no lof , vaginal bleeding, or dec fm. cold sore is gone. continue therapy until baby is born. ROS Constitutional Constitutional: Denies change in weight, fatigue, fever(s), headache(s), poor appetite or weakness Eyes Eyes: Denies blurry vision, change in vision, seeing flashes or spots in vision ENT HEENT: Denies dizziness, headache(s), loss taste/smell or sore throat Cardiovascular Cardiovascular: Denies chest pain, dizziness, dyspnea, irregular heart rhythm, leg edema, palpitations, rapid heart rate or vomiting Respiratory/Chest Respiratory/Chest: Denies chest tightness, cough, dyspnea or breast pain Gastrointestinal Gastrointestinal: Denies abdominal pain, anorexia, constipation, cramping, diarrhea, hemorrhoids, vomiting or weight changes Genitourinary Genitourinary: Denies dysuria, flank pain, genital lesions, genital pain, urinary frequency or urinary urgency Musculoskeletal Musculoskeletal: Denies back pain, difficulty walking, joint pain, limited range of motion, muscle cramps or numbness Integumentary Integumentary: Denies lesions or unusual bruising Neurologic Neurologic: Denies abnormal movements, abnormal speech, dizziness, numbness, seizure-like activity or syncope Psychiatric Psychiatric: Denies anxiety, behavioral changes, change in appetite, change in libido, cognitive impairment, confusion, depression, difficulty concentrating, hallucinations or suicidal thoughts Endocrine Endocrinology: Denies excessive sweating, polydipsia or polyuria Hematologic/Lymphatic Hematologic/Lymphatic: Denies easy bleeding, easy bruising or lymphadenopathy Allergic/Immunologic Allergic/Immunologic: Denies itchy eyes, lip swelling, seasonal rhinorrhea, rhinitis, throat swelling, tongue swelling, eczemia, wheezing or asthma Vital Signs Vital Signs Vital Signs: 06/18/23 02:50 06/18/23 02:50 06/18/23 02:50 Temperature Temperature Source Pulse Rate 89 Blood Pressure 117/74 BP Systolic 117 BP Diastolic 74 Pulse Ox 96 06/18/23 02:52 06/18/23 02:52 06/18/23 02:52 Temperature 99.1 F Temperature Source Temporal Pulse Rate Blood Pressure BP Systolic BP Diastolic Pulse Ox 99 06/18/23 02:57 06/18/23 02:57 06/18/23 04:05 Temperature Temperature Source Pulse Rate 86 90 Blood Pressure BP Systolic BP Diastolic Pulse Ox 96 06/18/23 04:05 06/18/23 04:06 06/18/23 04:06 Temperature Temperature Source Pulse Rate 93 Blood Pressure BP Systolic BP Diastolic Pulse Ox 86 99 06/18/23 04:11 06/18/23 04:11 06/18/23 04:16 Temperature Temperature Source Pulse Rate 86 88 Blood Pressure BP Systolic BP Diastolic Pulse Ox 98 06/18/23 04:16 06/18/23 04:21 06/18/23 04:21 Temperature Temperature Source Pulse Rate 92 Blood Pressure BP Systolic BP Diastolic Pulse Ox 97 97 06/18/23 04:26 06/18/23 04:26 06/18/23 04:31 Temperature Temperature Source Pulse Rate 92 94 Blood Pressure BP Systolic BP Diastolic Pulse Ox 98 06/18/23 04:31 06/18/23 04:36 06/18/23 04:36 Temperature Temperature Source Pulse Rate 90 Blood Pressure BP Systolic BP Diastolic Pulse Ox 96 98 06/18/23 04:40 06/18/23 04:40 06/18/23 04:41 Temperature Temperature Source Pulse Rate 85 Blood Pressure 119/77 112/81 H BP Systolic 119 112 BP Diastolic 77 81 Pulse Ox 06/18/23 04:41 06/18/23 04:41 06/18/23 04:47 Temperature Temperature Source Pulse Rate 100 Blood Pressure 108/71 BP Systolic 108 BP Diastolic 71 Pulse Ox 97 06/18/23 04:47 06/18/23 04:47 06/18/23 04:51 Temperature Temperature Source Pulse Rate 83 Blood Pressure 113/65 BP Systolic 113 BP Diastolic 65 Pulse Ox 97 06/18/23 04:51 06/18/23 04:52 06/18/23 04:52 Temperature Temperature Source Pulse Rate 81 84 Blood Pressure BP Systolic BP Diastolic Pulse Ox 97 06/18/23 04:52 06/18/23 04:52 06/18/23 04:55 Temperature 98.1 F Temperature Source Temporal Pulse Rate Blood Pressure 105/66 BP Systolic 105 BP Diastolic 66 Pulse Ox 06/18/23 04:55 06/18/23 04:57 06/18/23 04:57 Temperature Temperature Source Pulse Rate 83 85 Blood Pressure BP Systolic BP Diastolic Pulse Ox 97 06/18/23 05:01 06/18/23 05:01 06/18/23 05:02 Temperature Temperature Source Pulse Rate 85 84 Blood Pressure 104/61 BP Systolic 104 BP Diastolic 61 Pulse Ox 06/18/23 05:02 06/18/23 05:06 06/18/23 05:06 Temperature Temperature Source Pulse Rate 84 Blood Pressure BP Systolic BP Diastolic Pulse Ox 97 93 06/18/23 05:07 06/18/23 05:07 06/18/23 05:07 Temperature Temperature Source Pulse Rate 87 Blood Pressure 109/64 BP Systolic 109 BP Diastolic 64 Pulse Ox 97 06/18/23 05:10 06/18/23 05:10 06/18/23 05:12 Temperature Temperature Source Pulse Rate 90 91 Blood Pressure 114/68 BP Systolic 114 BP Diastolic 68 Pulse Ox 06/18/23 05:12 06/18/23 05:16 06/18/23 05:16 Temperature Temperature Source Pulse Rate 83 Blood Pressure 102/57 L BP Systolic 102 BP Diastolic 57 Pulse Ox 96 06/18/23 05:17 06/18/23 05:17 06/18/23 05:22 Temperature Temperature Source Pulse Rate 85 42 L Blood Pressure BP Systolic BP Diastolic Pulse Ox 97 06/18/23 05:22 06/18/23 05:25 06/18/23 05:25 Temperature Temperature Source Pulse Rate 82 Blood Pressure 99/53 L BP Systolic 99 BP Diastolic 53 Pulse Ox 82 06/18/23 05:27 06/18/23 05:27 06/18/23 05:31 Temperature Temperature Source Pulse Rate 83 Blood Pressure 95/54 L BP Systolic 95 BP Diastolic 54 Pulse Ox 96 06/18/23 05:31 06/18/23 05:32 06/18/23 05:32 Temperature Temperature Source Pulse Rate 81 81 Blood Pressure BP Systolic BP Diastolic Pulse Ox 96 06/18/23 05:35 06/18/23 05:35 06/18/23 06:26 Temperature Temperature Source Pulse Rate 80 Blood Pressure 101/56 L 96/53 L BP Systolic 101 96 BP Diastolic 56 53 Pulse Ox 06/18/23 06:26 06/18/23 06:26 06/18/23 06:26 Temperature Temperature Source Oral Pulse Rate 81 Blood Pressure BP Systolic BP Diastolic Pulse Ox 96 06/18/23 06:26 06/18/23 07:11 06/18/23 07:11 Temperature 97.5 F L Temperature Source Pulse Rate 82 Blood Pressure 96/55 L BP Systolic 96 BP Diastolic 55 Pulse Ox 06/18/23 07:11 06/18/23 07:11 06/18/23 07:12 Temperature 98.1 F Temperature Source Temporal Pulse Rate Blood Pressure BP Systolic BP Diastolic Pulse Ox 98 06/18/23 07:39 06/18/23 07:39 06/18/23 08:26 Temperature Temperature Source Temporal Pulse Rate 86 Blood Pressure 97/51 L BP Systolic 97 BP Diastolic 51 Pulse Ox 06/18/23 08:26 06/18/23 08:26 06/18/23 08:26 Temperature 98.0 F Temperature Source Pulse Rate 83 Blood Pressure 109/63 BP Systolic 109 BP Diastolic 63 Pulse Ox Weight Weight: 195 lb 5.273 oz Body Mass Index (BMI) 28.8 Physical Exam Const alert, oriented x3, no apparent distress and healthy appearing General Appearance: cooperative; Negative for anxious HEENT normocephalic Face and Sinus: normal facial exam Eyes EOMs intact bilaterally and no scleral icterus General Eye: normal appearance of both eyes Neck full ROM and supple Lymph Lymphatic: no lymphadenopathy noted Chest Chest: abnormal inspection of the chest Resp normal respiratory effort Effort and Inspection: able to speak in complete sentences Cardio regular rate GI soft to palpation and non-tender GI Narrative: cx currently 4-5 cm/90/0, membranes bulging and artificially ruptured. Meconium stained fluid present. Inspection: gravid Palpation: soft; Negative for tender external exam normal Back/Spine no CVA tenderness Extremity normal to inspection, full ROM and no clubbing, cyanosis or edema General Extremity: Negative for calf tenderness or edema Skin Lesions: no lesions Rashes: no rashes Psych mental status grossly normal Labs Labs Labs: Blood Type A NEGATIVE Antibody Screen NEGATIVE Hct 34.2 % (37-47) L Hgb 11.5 g/dL (12.0-15.0) L Obstetrics Ultrasound Syphilis Total Ab Non-reactive Rubella IgG Antibody Reactive (Nonreactive) Hep Bs Antigen Non-Reactive (Nonreactive) Hepatitis C Antibody Non-Reactive (Nonreactive) Chlamydia DNA (GEM) Negative (Negative) N.gonorrhoeae DNA (GEM) Negative (Negative) HIV 1&2 Antibody Non-Reactive (Nonreactive) Glucose 1 Hr 50 gm 172 mg/dL (70-140) H Gest Glucose Tolerance MG/DL Assessment & Plan (1) Abnormal glucose affecting : COMMENT: 3 hr GTT normal (2) Anemia in preg-unspec: QUALIFIERS: Trimester: third trimester Qualified Code(s): O99.013 - Anemia complicating , third trimester COMMENT: start Fe daily (3) Rh negative status during : QUALIFIERS: Trimester: second trimester Qualified Code(s): O26.892 - Other specified related conditions, second trimester; Z67.91 - Unspecified blood type, Rh negative COMMENT: rhogam 28 wk, pp and prn bleeding, Rhogam given 03/28/23 (4) Tobacco use: COMMENT: down to 2-3 cig per day or less, counseled. Not smoking currently daily. May have 1-2 cig per week (5) Positive test for human papillomavirus (HPV): COMMENT: repeat pap in 1 year (6) Abnormal Papanicolaou smear of cervix with positive human papilloma virus (HPV) test: COMMENT: repeat (7) : QUALIFIERS: Weeks of gestation: 39 weeks Qualified Code(s): Z3A.39 - 39 weeks gestation of COMMENT: Neg GBS. NIPT low risk, carrier neg. , nl anatomy (8) Supervision of high risk , antepartum: COMMENT: [id number], SHERIF 06/18/23, girl, Get [place] PLAN: Plan Patient presents IAL, plan expectant management for , pitocin/AROM now successful- thick meconium stained fluid. will ask peds to be present at delivery for suction as needed Pain management: epidural running now and effective GBS negative . Management of any complications: none I have reviewed the [facility] and made any clinically relevant updates.
--- NOTE | 2023-06-18 15:51 | OP.PCM_ITS ---
Assessment & Plan (1) Abnormal glucose affecting : COMMENT: 3 hr GTT normal (2) Anemia in preg-unspec: QUALIFIERS: Trimester: third trimester Qualified Code(s): O99.013 - Anemia complicating , third trimester COMMENT: start Fe daily (3) Rh negative status during : QUALIFIERS: Trimester: second trimester Qualified Code(s): O26.892 - Other specified related conditions, second trimester; Z67.91 - Unspecified blood type, Rh negative COMMENT: rhogam 28 wk, pp and prn bleeding, Rhogam given 03/28/23 (4) Tobacco use: COMMENT: down to 2-3 cig per day or less, counseled. Not smoking currently daily. May have 1-2 cig per week (5) Positive test for human papillomavirus (HPV): COMMENT: repeat pap in 1 year (6) : QUALIFIERS: Weeks of gestation: 39 weeks Qualified Code(s): Z3A.39 - 39 weeks gestation of COMMENT: Neg GBS. NIPT low risk, carrier neg. , nl anatomy (7) Abnormal Papanicolaou smear of cervix with positive human papilloma virus (HPV) test: COMMENT: repeat (8) Supervision of high risk , antepartum: COMMENT: [id number], SHERIF 06/18/23, girl, Get [place] Maternal Data Information SHERIF Calculator Estimated Delivery Date Method Current WG Current Estimate 06/18/23 Ultrasound #1 40w 0d Other Estimates 06/10/23 LMP (Uncertain) 41w 1d Final SHERIF: 06/18/23 Final SHERIF Source: US <20 weeks [place] Doctor Who Attended Delivery: Delvis Russell Vaginal Delivery Maternal Presentation Maternal Presentation: Active Labor Type of Induction: Pitocin and Amniotomy Operative Information Date of Procedure: 06/18/23 Pre-Operative Diagnosis: 32 y/o @ 40 weeks, 0 days, active labor Post-Operative Diagnosis: 32 y/o @ 40 weeks, 0 days, active labor, meconium stained fluid, terminal bradycardia. Surgery / Procedure Performed: Spontaneous Vaginal Delivery Type of Anesthesia: Epidural Drain: Lazo to straight drain Estimated Blood Loss: 100cc Time of Delivery: 15:32 Findings Description of Procedure: Patient began pushing and The head was comind down in an OA position. The heart rate dropped into the 60's where it remained for several seconds as she tried pushing again. A small right mediolateral episiotomy was performed to assist in delivery of the head. The head delivered the head in the OA presentation atraumatically . The anterior and posterior shoulders delivered without complication followed by the rest of the infant and the was placed on the maternal abdomen. Cord was clamped and cut and the was passed off to Dr. Russell for further assessment. Gentle traction was applied to the cord and the placenta delivered spontaneously immediately following it was noted to be intact with three-vessel cord. The perineum and vagina were inspected and noted to have a 1st degree laceration. This was repaired using a 3-0 vicryl. EBL was 100 cc. Patient and infant tolerated delivery well. Presentation: Vertex Amniotic Fluid Description: Moderate meconium Placental Delivery Description: Spontaneous Placenta Disposition: [facility] Cord Vessel Description: 3 Vessels Cord Entanglement: None Infant A Gender: Female (1 minute): 8 (5 minute): 9 Delayed Cord Clamping: No Post Vaginal Delivery Medications Given After Delivery: IV Pitocin Episiotomy Description: Right Mediolateral and 1st degree Laceration: 1st degree Complication Complications: None Multi Select Codes Urinary/Genital Urinary/Genital CPT Codes: 09267 Vaginal Delivery+ Care([facility])
--- NOTE | 2023-06-18 15:57 | DCINST_ITS ---
Discharge Instructions Diet Discharge Diet: No restrictions Activity Discharge Activity: Return to Normal Activity, May Not Drive (while taking narcotic pain medications.) and May Shower May resume sexual activity in: 4-6 weeks Dressing / Incision Call your doctor if your incision/area has: Continuous Slow Oozing, Sudden Increased Bleeding, Increased Pain/ Swelling, Increased Redness and Foul Smelling Discharge Follow Up Care Please Follow Up With: Ebony Cox, When: Call [phone] to make an appointment with your doctor in 6 weeks. If you had elevated blood pressure or 4th degree laceration, you will need to be seen in 2 weeks. Test Results: Test results from this visit will be discussed in further detail at your follow- up appointment, if applicable. Discharge Plan Admission Admit Date/Time: 06/18/23 03:15 Primary Reason for Your Visit: vaginal delivery Attending Provider: Ebony Cox Primary Care Provider: Care Physician,No Primary Discharge Orders/Prescriptions Prescriptions: No Action valacyclovir [Valtrex] 500 mg tablet 500 mg PO BID Qty: 7 3RF [id number] 1 mg tablet PO Referrals / Follow Up: Care Physician,No Primary [Primary Care Provider] -
[2023-06-18] MEDS: Oxytocin 15 Units/NS 250ml 15 UNITS/250 ML IV.SOLN 83 UNITS IV (16:21)
[2023-06-18] MEDS: Acetaminophen 500 MG Tablet 1000 MG PO (18:20)
[2023-06-18] MEDS: 0.9% Saline Lock 10 ML Syringe IV (19:16)
[2023-06-19 03:20] VITALS: BP 101/52; PULSE 84; RESP 16; TEMP 36.6; O2SAT 95
--- NOTE | 2023-06-19 07:29 | PCM.PN.OB ---
Subjective Subjective Patient doing well without complaints. Tolerating PO. Ambulating and voiding without difficulty. Feeding well. Denies chest pain, shortness of breath, calf pain/swelling, fevers, chills, lightheadedness. Objective Data Objective Data Vital Signs: Vital Signs Temp Pulse Resp BP Pulse Ox O2 Del Method 97.9 F 84 16 101/52 L 95 Room Air 06/19/23 03:20 06/19/23 03:20 06/19/23 03:20 06/19/23 03:20 06/19/23 03:20 06/19/23 03:20 Oxygen Delivery Method Room Air Weight: 195 lb 5.273 oz Body Mass Index (BMI) 28.8 Intake & Output: Intake and Output for Last 24 Hours 06/17/23 06/18/23 06/19/23 23:59 23:59 23:59 Intake Total 3866.67 / 3866.67 Output Total 1550 / 1550 Balance 2316.67 / 2316.67 Lab / Micro Data 06/18/23 03:35 Physical Exam Const alert and oriented x3 HEENT normocephalic Eyes PERRL Neck full ROM Resp normal respiratory effort GI soft to palpation GI Narrative: FF below U Assessment & Plan (1) Spontaneous vaginal delivery: COMMENT: 06/18/23 JV girl Get. RML epis (2) Rh negative status during : QUALIFIERS: Trimester: second trimester Qualified Code(s): O26.892 - Other specified related conditions, second trimester; Z67.91 - Unspecified blood type, Rh negative COMMENT: rhogam 28 wk, pp and prn bleeding, Rhogam given 03/28/23 PLAN: Plan s/p PPD # 1 1. routine post delivery care 2. breast feeding- support given 3. rh negative-rhogam needed 4. rubella immune 5. Possible discharge later today.
[2023-06-19 07:34] VITALS: BP 106/65; PULSE 78; RESP 16; TEMP 36.4; O2SAT 97
[2023-06-19 12:29] VITALS: BP 106/76; PULSE 80; RESP 14; TEMP 36.6; O2SAT 95
[2023-06-19] MEDS: Acetaminophen 500 MG Tablet 1000 MG PO (12:35)
[2023-06-19] MEDS: Senna/Docusate Sodium 1 Tablet PO (12:35)
[2023-06-19 16:58] VITALS: BP 110/72; PULSE 73; RESP 16; TEMP 36.4; O2SAT 97
[2023-06-19 19:15] VITALS: RESP 16
--- NOTE | 2023-06-23 10:32 | NURSING ---
Follow up phone call made. Patient states she is feeling pretty good, states her pain is mostly gone, bleeding is getting better everyday. States she has not had any headaches, visual disturbances, or flu like symptoms since going home. Moses any problems with Baby Blues since being home. Get is well every 2-3 hours, voiding and stooling well. Patient states she understood all of her discharge instructions, and denies any questions at this time. Patient was satisfied with her care. States she had a great team, and that they were wonderful. States she loved her nurses Kamryn and Neha.
== END 2023-06-19 19:15 | disposition home or self-care (01) | DRG 560 ==
LOC: WPOUT 03:19 → WP 03:19
PROVIDERS: Admitting Provider Obstetrics & Gynecology; Visit Provider Obstetrics & Gynecology
DX: O76 Abnormality in fetal heart rate and rhythm complicating labor and delivery (principal); Z37.0 Single live birth; F17.210 Nicotine dependence, cigarettes, uncomplicated; O99.334 Smoking (tobacco) complicating childbirth; O70.0 First degree perineal laceration during delivery; O77.0 Labor and delivery complicated by meconium in amniotic fluid; O99.02 Anemia complicating childbirth; O26.893 Other specified pregnancy related conditions, third trimester; Z67.11 Type A blood, Rh negative; R87.618 Other abnormal cytological findings on specimens from cervix uteri; Z3A.40 40 weeks gestation of pregnancy
CPT/HCPCS: 59025; 59050; 85025; 86780; 86850; 86900; 86901; 99221; J7120; A4216; G0378; J2405

== ENCOUNTER → 2023-08-25 | Outpatient (CLI) | payer MEDICAID, SELFPAY ==
[2023-08-30 17:07] LABS: HPV APTIMA, High Risk Negative (Negative)
== END | disposition home or self-care (01) ==
LOC: LABSPEC 16:23
PROVIDERS: Referring Provider Advanced Practice Midwife; Visit Provider Advanced Practice Midwife
DX: Z12.4 Encounter for screening for malignant neoplasm of cervix (principal)
CPT/HCPCS: 87624; 88175; G0145

== ENCOUNTER → 2025-04-17 | Outpatient (CLI) | payer MEDICAID, SELFPAY ==
[2025-04-22 14:09] LABS: HPV APTIMA, High Risk Negative (Negative)
== END | disposition home or self-care (01) ==
LOC: LABSPEC 13:24
PROVIDERS: Referring Provider Nurse Practitioner Family; Visit Provider Nurse Practitioner Family
DX: Z12.4 Encounter for screening for malignant neoplasm of cervix (principal)
CPT/HCPCS: 87624; 88175; G0145